=== PATIENT | female | born 1945 | race Caucasian/White ===

== ENCOUNTER → 2018-03-31 | Outpatient (CLI) | payer MEDICARE, OTHER ==
[2018-03-31 13:41] LABS: PLATELET COUNT, AUTOMATED 268 K/uL (150-450)
[2018-03-31 13:58] LABS: LDL CHOLESTEROL 106 mg/dl
--- NOTE | 2018-03-31 15:58 | RADIOLOGY IMAGING REPORT ---
FACILITY: [facility] [place] PATIENT NAME: Lyric Patel : 1945 MR: [id number] V: [id number] EXAM DATE: ORDERING PHYSICIAN: CECILIA PALACIOS TECHNOLOGIST: Location: [facility] Patient: Lyric Patel : 1945 Visit/Account:[id number] Date of Sevice: 03/31/2018 Exam type: CHEST PA AND LAT History: Hypoxia Comparison: None. Findings: Mild linear stranding in the lung bases may represent scarring versus atelectasis. There is no evide nce of focal infiltrates, pleural effusions or pulmonary edema. On the lateral view there is a soft tissue protuberance projecting superiorly from the diaphragmatic surface. The cardiac silhouette is normal in size. The trachea is in midline IMPRESSION: 1. Mild linear stranding in the lung bases may be secondary to atelectasis versus scarring There is a soft tissue protuberance projecting superiorly from the diaphragmatic surface best appreci ated on the lateral view. This could represent a small diaphragmatic hernia versus a space-occupying lesion within the lung itself. Short-term interval follow-up chest or chest CT may be helpful Report Dictated By: Isaura Nevarez MD at 03/31/2018 3:52 PM Report E-Signed By: Isaura Nevarez MD at 03/31/2018 3:54 PM WSN:[email or web address]
== END ==
LOC: LAB 12:54
PROVIDERS: ATTEND Emergency Medicine
DX: I10 Essential (primary) hypertension (principal); E66.9 Obesity, unspecified; R20.8 Other disturbances of skin sensation; M85.80 Other specified disorders of bone density and structure, unspecified site; R09.02 Hypoxemia
CPT/HCPCS: 36415; 71046; 82040; 82247; 82306; 82310; 82374; 82435; 82465; 82565; 82607; 82947; 83718; 83880; 84075; 84132; 84155; 84295; 84443; 84450; 84460; 84478; 84520; 85007; 85027; 85379

== ENCOUNTER → 2018-04-09 | Outpatient (CLI) | payer MEDICARE, OTHER | LOC: RESP 01:22 | PROVIDERS: ATTEND Emergency Medicine | DX: J45.909 Unspecified asthma, uncomplicated (principal) | CPT/HCPCS: 94060; 94726; 94729 ==

== ENCOUNTER → 2018-07-01 | Outpatient (CLI) | payer MEDICARE, OTHER ==
[~2018-07-01] MED LIST: ALB18R INH; ALB6.7R INH; FLUT16SP19 NS
--- NOTE | 2018-07-01 09:56 | RADIOLOGY IMAGING REPORT ---
FACILITY: [facility] [place] PATIENT NAME: Lyric Patel : 1945 MR: [id number] V: [id number] EXAM DATE: ORDERING PHYSICIAN: YAIMA DOWELL TECHNOLOGIST: Location: [facility] [place] Patient: Lyric Patel : 1945 Visit/Account:[id number] Date of Sevice: 07/01/2018 CHEST PA LAT History: Chronic cough FINDINGS: Comparison studies: Comparison radiograph 03/31/2018 Tubes and Lines: None. Lungs and pleura: Small transversely oriented discoid opacity left lung base is unchanged and conse quently represents scar rather than atelectasis. Lung parenchyma is otherwise well-aerated. Mediastinum: normal. 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 On the prior study a d ensity projecting over the inferior heart on the lateral view was questioned but this is less apparen t today. Osseous structures: Unremarkable for age . IMPRESSION: Mild left basilar discoid scarring. Recommend chest CT ((preferably with contrast) for further assessment of a persistent double density seen over the heart Report Dictated By: Anton Haji MD at 07/01/2018 9:48 AM Report E-Signed By: Anton Haji MD at 07/01/2018 9:52 AM WSN:[email or web address]
== END ==
LOC: RAD 08:35
PROVIDERS: ATTEND Internal Medicine
DX: R91.8 Other nonspecific abnormal finding of lung field (principal)
CPT/HCPCS: 71046

== ENCOUNTER → 2018-07-16 | Outpatient (CLI) | payer MEDICARE, OTHER | LOC: ZZSENDIN 10:07 | PROVIDERS: ATTEND Internal Medicine | DX: Z02.9 Encounter for administrative examinations, unspecified (principal) ==

== ENCOUNTER 2018-07-17 11:59 | Outpatient (RCR) | payer MEDICARE, OTHER ==
[2018-07-21] MEDS ORDERED: CYAN500T38 PO (11:42)
[2018-07-22] MEDS ORDERED: IOPAMIDOL 76% 150 ML INFUS BTL 150 ML ONE (09:13)
--- NOTE | 2018-07-22 13:22 | RADIOLOGY IMAGING REPORT ---
FACILITY: [facility] PATIENT NAME: Lyric Patel : 1945 MR: [id number] V: [id number] EXAM DATE: ORDERING PHYSICIAN: YAIMA DOWELL TECHNOLOGIST: Location: [facility] Patient: Lyric Patel : 1945 Visit/Account:[id number] Date of Sevice: 07/22/2018 CT CHEST (CONTRAST) HISTORY: Abnormal chest x-ray TECHNIQUE: CT chest with intravenous contrast. Contiguous helical images was performed from the lung apices to below the diaphragm. One of the following dose optimization techniques was utilized in the performance of this exam: Autom ated exposure control; adjustment of the mA and/or kV according to the patient's size; or use of an i terative reconstruction technique. Specific details can be referenced in the facility's radiology C T exam operational policy. CONTRAST: 75 cc of Isovue-[id number] COMPARISON: Chest x-ray 07/01/2018 FINDINGS: Heart/vessels: Main pulmonary artery measures 3.6 cm which is enlarged. No concerning mediastinal m ass. The abnormality seen on the chest x-ray likely represents superimposition of normal structures likely the IVC and right atrium. There is a small hiatal hernia. Mediastinum: Small hiatal hernia is noted. Lymph nodes: Negative. Lungs/pleura: Benign areas of linear atelectasis or scarring are noted at both lung bases. Visualized upper abdomen: Gallstones are noted in gallbladder. Bones/soft tissues: Degenerative changes are noted. Vertebral body hemangiomas noted at T10. IMPRESSION: 1. No concerning mediastinal mass. The abnormality seen on the chest x-ray likely represents overla pping normal structures. 2. Enlarged main pulmonary artery may reflect partial hypertension. 3. Benign areas of scarring or atelectasis at both lung bases. Report Dictated By: Ryan Nelson MD at 07/22/2018 1:10 PM Report E-Signed By: Ryan Nelson MD at 07/22/2018 1:18 PM WSN:[email or web address]
== END 2018-07-22 18:00 | disposition home or self-care (01) ==
LOC: CT 11:59
PROVIDERS: ATTEND Internal Medicine
DX: N28.9 Disorder of kidney and ureter, unspecified (principal); R93.89 Abnormal findings on diagnostic imaging of other specified body structures
CPT/HCPCS: 36415; 71260; 82565; Q9967

== ENCOUNTER → 2018-07-17 | Outpatient (CLI) | payer MEDICARE, OTHER | LOC: LAB 12:01 | PROVIDERS: ATTEND Emergency Medicine | DX: E53.8 Deficiency of other specified B group vitamins (principal); E78.5 Hyperlipidemia, unspecified | CPT/HCPCS: 82465; 82607; 83718; 84478 ==

== ENCOUNTER → 2018-11-26 | Outpatient (CLI) | payer MEDICARE, OTHER ==
[~2018-11-26] MED LIST changes: +ALEN70TA43 PO; +AZEL137S NS; +CYAN500T39 PO; +HYDR-2966 PO; +ROSU10TA PO; +ROSU10TA5 PO
== END ==
LOC: LAB 08:25
PROVIDERS: ATTEND Emergency Medicine
DX: E78.5 Hyperlipidemia, unspecified (principal)
CPT/HCPCS: 36415; 82465; 83718; 84478